=== PATIENT | female | born 1970 | race Hispanic/Latino ===

== ENCOUNTER 2025-06-08 19:42 | Emergency (ER) | payer BC ==
[~2025-06-08] VITALS: Ht 162.6 cm; Wt 66.7 kg
[2025-06-08 20:35] VITALS: TEMP 97.8
[2025-06-08] MEDS ORDERED: SODIUM CHLORIDE FLUSH 10 ML SYR IV PRN (21:30)
[2025-06-08 21:33] LABS: BASOPHILS % 0.5 % (0.0-1.0); EOSINOPHILS % 0.6 % (0.0-6.0); LYMPHOCYTES % 27.8 % (18.0-39.1); MONOCYTES % 8.1 % (4.4-11.3); NEUTROPHILS % 62.5 % (38.7-80.0); RED CELL DISTRIBUTION WIDTH 13.7 % (11.7-14.4)
[2025-06-08 21:43] LABS: EST GLOMERULAR FILTRATION RATE 102.0 ML/MIN (>=60)
[2025-06-08 23:45] VITALS: PULSE 72; RESP 17
[2025-06-09 00:23] VITALS: O2SAT 100
== END 2025-06-09 00:10 | disposition home or self-care (01) ==
LOC: ER 23:10
DX: R03.0 Elevated blood-pressure reading, without diagnosis of hypertension (principal)
CPT/HCPCS: 36415; 71045; 80053; 82550; 84484; 85025; 94760; 99284